=== PATIENT | female | born 1995 | race African-American/Black ===

== ENCOUNTER 2021-09-08 19:34 | Emergency (ER) | payer BC, MEDICAID ==
[~2021-09-08] VITALS: Ht 152.4 cm; Wt 51.5 kg
[2021-09-08 23:49] LABS: BASOPHILS % 1.3 % (0.0-2.0); EOSINOPHILS % 1.3 % (0.0-5.0); HEMATOCRIT. 37.3 % (36.0-48.0); HEMOGLOBIN. 12.6 g/dL (12.0-16.0); LYMPHOCYTES % 29.6 % (20.0-50.0); MEAN CORPUSCULAR HEMOGLOBIN 29.5 pg (28.0-32.0); MEAN PLATELET VOLUME 7.9 fl (7.4-10.4); NEUTROPHILS % 58.8 % (40.0-76.0); PLATELET 418 x1000/uL (130-400); RED BLOOD CELL COUNT 4.29 mill/uL (4.2-5.4); RED CELL DISTRIBUTION WIDTH 13.9 % (11.6-14.6)
[2021-09-08 23:56] LABS: CHLORIDE 110 mEq/L (98-107)
[2021-09-09 00:06] LABS: HCG SCREEN NEGATIVE
[2021-09-09 00:14] LABS: CLARITY URINE CLEAR (CLEAR); COLOR URINE YELLOW (YELLOW); KETONES URINE NEGATIVE (NEGATIVE); LEUKOCYTE ESTERASE URINE NEGATIVE (NEGATIVE); NITRITE URINE NEGATIVE (NEGATIVE); OCCULT BLOOD URINE NEGATIVE (NEGATIVE); PROTEIN URINE NEGATIVE (NEGATIVE); SPECIFIC GRAVITY URINE 1.016 (1.005-1.030); UROBILINOGEN URINE 0.2 E.U./dL (0.2-1.0)
[2021-09-09 03:06] VITALS: BP 126/74
== END 2021-09-09 02:30 | disposition home or self-care (01) ==
LOC: ER 19:34
DX: N83.292 Other ovarian cyst, left side (principal); N83.291 Other ovarian cyst, right side; R10.32 Left lower quadrant pain
CPT/HCPCS: 36415; 76700; 76830; 76856; 80053; 81003; 81025; 84703; 85025; 99285